=== PATIENT | male | born 2000 | race Caucasian/White ===

== ENCOUNTER 2021-01-14 13:52 | Emergency (ER) | payer MEDICAID ==
[~2021-01-14] VITALS: Ht 180.3 cm; Wt 65.0 kg
[2021-01-14] MEDS ORDERED: LIDOCAINE HCL/PF 1% 10 MG/ML 5ML VIAL INFIL ONE (15:45)
[2021-01-14] MEDS ORDERED: BACITRACIN ZINC OINT UDPKT TOP ONE (15:45)
[2021-01-14 18:00] VITALS: BP 127/84
== END 2021-01-14 18:01 | disposition home or self-care (01) ==
LOC: ER 13:52
DX: S51.812A Laceration without foreign body of left forearm, initial encounter (principal); W25.XXXA Contact with sharp glass, initial encounter; Y93.89 Activity, other specified; Y92.89 Other specified places as the place of occurrence of the external cause; Y99.8 Other external cause status; Z88.0 Allergy status to penicillin
CPT/HCPCS: 99283; J3490

== ENCOUNTER 2021-01-17 16:02 | Emergency (ER) | payer MEDICAID ==
[~2021-01-17] VITALS: Ht 177.8 cm; Wt 73.0 kg
[2021-01-17 16:14] VITALS: BP 135/70
== END 2021-01-17 18:35 | disposition home or self-care (01) ==
LOC: ER 16:02
DX: Z48.00 Encounter for change or removal of nonsurgical wound dressing (principal); Z88.0 Allergy status to penicillin
CPT/HCPCS: 99281

== ENCOUNTER 2021-01-24 15:45 | Emergency (ER) | payer MEDICAID ==
[~2021-01-24] VITALS: Ht 177.8 cm; Wt 73.0 kg
[2021-01-24 15:59] VITALS: BP 124/81
== END 2021-01-24 17:29 | disposition home or self-care (01) ==
LOC: ER 15:45
DX: Z48.02 Encounter for removal of sutures (principal); J45.909 Unspecified asthma, uncomplicated; Z88.0 Allergy status to penicillin
CPT/HCPCS: 99281

== ENCOUNTER 2024-11-29 15:49 | Emergency (ER) | payer MEDICAID ==
[~2024-11-29] VITALS: Ht 172.7 cm; Wt 77.0 kg
[2024-11-29 15:51] VITALS: PULSE 103; RESP 16; O2SAT 99
[2024-11-29 16:03] VITALS: BP 142/91; TEMP 36.9; O2SAT 98
== END 2024-11-29 17:05 | disposition home or self-care (01) ==
LOC: ER 15:49
DX: J45.909 Unspecified asthma, uncomplicated (principal); Z88.0 Allergy status to penicillin
CPT/HCPCS: 71046; 99283

== ENCOUNTER 2024-12-03 12:10 | Emergency (ER) | payer MEDICAID ==
[~2024-12-03] VITALS: Ht 172.7 cm; Wt 78.0 kg
[2024-12-03 12:17] VITALS: TEMP 37; O2SAT 99
[2024-12-03 14:58] VITALS: BP 151/82; PULSE 64; RESP 18; O2SAT 100
== END 2024-12-03 14:58 | disposition home or self-care (01) ==
LOC: ER 12:10
DX: R09.A0 Foreign body sensation, unspecified (principal); J45.909 Unspecified asthma, uncomplicated; M54.2 Cervicalgia; Z88.0 Allergy status to penicillin
CPT/HCPCS: 70490; 99284